=== PATIENT | female | born 1975 | race Caucasian/White ===

== ENCOUNTER 2018-05-03 10:00 | Emergency (ER) | payer OTHER ==
[~2018-05-03] VITALS: Ht 157.5 cm; Wt 90.7 kg
--- NOTE | 2018-05-03 11:08 | ED GI/GU/ABDOMINAL COMPLAINT ---
History of Present Illness General Chief Complaint: Abdominal Pain/Flank Pain Stated Complaint: SENT BY URGENT CARE FOR EVAL OF ABD PAIN/NAUSEA Source: patient Exam Limitations: no limitations Vital Signs & Intake/Output Vital Signs & Intake/Output Vital Signs Date Time Temp Pulse Resp B/P B/P Pulse O2 O2 Flow FiO2 Mean Ox Delivery Rate 05/03 1346 98.0 80 20 130/78 98 Room Air 05/03 1018 97.4 84 18 138/88 99 Room Air Allergies Coded Allergies: diphenhydramine (From BENADRYL) (Intermediate, HIGH HEART RATE. 05/03/18) Reconcile Medications Hydroxyzine HCl (hydrOXYzine HCl) 50 MG TABLET 1 TAB PO QPM SLEEP (Reported) Ketorolac Tromethamine 10 MG TABLET 1 TAB PO TID PRN PAIN Metoclopramide HCl (Reglan) 10 MG TABLET 1 TAB PO 4 TIMES/DAY PRN NAUSEA Ondansetron HCl (Zofran) 4 MG TABLET 1 TAB PO Q6-8P PRN NAUSEA Triage Note: C/O LLQ ABDOMINAL PAIN AND R LOWER BACK PAIN SINCE YESTERDAY. ALSO C/O NAUSEA AND DIZZINESS. LMP: 71 DENIES VOMIITING. Triage Nurses Notes Reviewed? yes ? N Is pt currently ? No Onset: Gradual Duration: waxing and waning Timing: recent history Quality/Severity: cramping, sharpness Severity Numbers: 7 Radiation: no radiation HPI: Patient is a 42-year-old female who presents emergency room with concerns of having menstrual cramping sensation that began 3 days ago where she's had intermittent nausea since. Patient is passing gas last bowel movement was 2 days ago. Patient is complaining of generalized abdominal pain patient is able tolerate by mouth with no change in symptoms patient was evaluated at urgent care facility and WAS ADVISED to emergency room. Denies any significant use of NSAIDs or alcohol. Denies any fever chills back pain chest pain shortness of breath cough vomiting (Clifton Shaikh) Past History Travel History Traveled to [place] past 21 day No Medical History Any Pertinent Medical History? none Neurological: NONE EENT: NONE Cardiovascular: NONE Gastrointestinal: NONE Hepatic: NONE Renal: NONE Musculoskeletal: NONE Psychiatric: NONE Endocrine: NONE Surgical History Surgical History: non-contributory Psychosocial History What is your primary language Malay Tobacco Use: Never used ETOH Use: occasional use Family History Hx Contributory? No (Clifton Shaikh) Review of Systems Review of Systems Constitutional: Reports: see HPI. EENTM: Reports: no symptoms. Respiratory: Reports: no symptoms. Cardiovascular: Reports: no symptoms. GI: Reports: see HPI. Genitourinary: Reports: no symptoms. Musculoskeletal: Reports: no symptoms. Skin: Reports: no symptoms. Neurological/Psychological: Reports: no symptoms. Hematologic/Endocrine: Reports: no symptoms. Immunologic/Allergic: Reports: no symptoms. All Other Systems: Reviewed and Negative (Clifton Shaikh) Physical Exam Physical Exam General Appearance: no apparent distress, alert, mild distress Head: atraumatic Eyes: Bilateral: normal appearance. Ears, Nose, Throat, Mouth: hearing grossly normal, moist mucous membrane Neck: normal inspection Respiratory: no respiratory distress Gastrointestinal: normal bowel sounds, soft, tenderness Extremities: normal range of motion Neurologic/Psych: no motor/sensory deficits Skin: intact, normal color Core Measures ACS in differential dx? No Sepsis Present: No Sepsis Focused Exam Completed? No (Clifton Shaikh) Progress Differential Diagnosis: AAA, AMI, appendicitis, biliary colic, bowel obstruction , colon cancer, cholecystitis, diverticulitis, ectopic , endometritis, esophageal varices, gastritis, hepatitis, hernia, hemorrhoids, ischemic bowel, inflamm bowel dis, intrauterine , kidney stone, Karen-Mathieu tear, ovarian cyst, ovarian torsion, pancreatitis, PID/cervicitis, peptic ulcer, PUD/ GERD, perforated viscous, SBO, threatened AB, UTI/pyelo Plan of Care: Orders Procedure Date/time Status URINALYSIS 05/03 111 Complete LACTIC ACID 05/03 111 Complete HUMAN BETA HCG SCREEN 05/03 111 Complete COMPREHENSIVE METABOLIC PANEL 05/03 1118 Complete CBC WITHOUT DIFFERENTIAL 05/03 1118 Complete Laboratory Tests 05/03/18 1305: Urinalysis LIGHT H, Urine Color STRAW, Urine Clarity CLEAR, Urine pH 6.0, Ur Specific [place] <= 1.005, Urine Protein NEG, Urine Ketones NEG, Urine Nitrite NEG, Urine Bilirubin NEG, Urine Urobilinogen 0.2, Ur Leukocyte Esterase NEG, Ur Microscopic SEDIMENT EXAMINED, Urine RBC 1-3, Ur Epithelial Cells RARE, Urine Mucus RARE, Urine Hemoglobin TRACE-INTACT, Urine Glucose NEG 05/03/18 1131: Anion Gap 10, Estimated GFR > 60, BUN/Creatinine Ratio 14.3, Glucose 92, Lactic Acid 0.8, Calcium 9.0, Total Bilirubin 0.5, AST 21, ALT 28, Alkaline Phosphatase 93, Total Protein 6.8, Albumin 3.8, Globulin 3.0, Albumin/Globulin Ratio 1.3, Total Beta HCG NEGATIVE, CBC w Diff NO MAN DIFF REQ, RBC 4.75, MCV 84.2, MCH 29.0, MCHC 34.5, RDW 12.7, MPV 8.4, Gran % 68.5, Lymphocytes % 20.8, Monocytes % 4.3, Eosinophils % 5.6 H, Basophils % 0.8, Absolute Granulocytes 5.2, Absolute Lymphocytes 1.6, Absolute Monocytes 0.3, Absolute Eosinophils 0.4, Absolute Basophils 0.1 Patient on initial presentation was in no apparent distress resting comfortably bedside Blood work CT scan was unremarkable patient was able tolerate by mouth upon discharge discussed all results with patient and no clear etiology of patient's symptoms however it could be menstrual symptoms versus GI Upon discharge patient looks well no apparent distress and will comply with discharge INSTRUCTIONS and had no questions Diagnostic Imaging: Viewed by Me: CT Scan. Radiology Impression: no acute abnormality Initial ED EKG: none Comments: PATIENT: VICKI AHMADI PRESENT AGE: 42 PATIENT ACCOUNT NO: [id number] : 77 LOCATION: [facility] ORDERING PHYSICIAN: Clifton ALEX SERVICE DATE: 05/03/18 EXAM TYPE: CAT - CT ABD & PELVIS W IV CONTRAST EXAMINATION: CT ABDOMEN AND PELVIS WITH CONTRAST CLINICAL INFORMATION: Nausea and abdominal pain. COMPARISON: None TECHNIQUE: Multidetector volumetric imaging was performed of the abdomen and pelvis following IV administration of 95 mL of Optiray 320 intravenous contrast. Sagittal and coronal reformatted images were obtained on the technologist's workstation. DLP: 654 mGy-cm FINDINGS: LUNG BASES: The lung bases are clear. The heart size is normal. LIVER, GALLBLADDER, AND BILIARY TREE: The liver is normal in size, shape, and diminished attenuation. No focal hepatic lesion or biliary ductal dilatation is present. There are punctate calcifications in the right hepatic lobe. The gallbladder is unremarkable with no evidence of radiopaque gallstones, gallbladder wall thickening, or obvious pericholecystic inflammatory changes. PANCREAS: Unremarkable. SPLEEN: A accessory splenule is seen along the anterior border of spleen. ADRENAL GLANDS: Unremarkable. KIDNEYS AND URETERS: The kidneys are normal in size, shape, and attenuation. No hydronephrosis, hydroureter, or calculi seen. No perinephric stranding. BLADDER: Unremarkable. GASTROINTESTINAL TRACT: There is moderate stool seen throughout the colon without any significant distention. The small bowel loops are normal caliber. The ileocecal junction appears normal. The appendix is normal caliber. No free air or inflammatory process. ABDOMINAL WALL: A small umbilical hernia containing fat is noted. LYMPH NODES: Normal. VASCULAR: Unremarkable. PELVIC VISCERA: The uterus is anteverted. No adnexal mass or inflammatory process seen. There is likely tampon in the cervical canal. OSSEOUS STRUCTURES: No lytic or sclerotic process seen. IMPRESSION: No acute intra-abdominal process seen. Nonspecific punctate calcification right hepatic lobe. DICTATED BY: Brandon Haynes MD DATE/TIME DICTATED:05/03/181305 LOAN INSPECTOR:TEDDY DATE/TIME TRANSCRIBED:05/03/181305 (Clifton Shaikh) Departure Departure Disposition: HOME OR SELF CARE Condition: Stable Clinical Impression Primary Impression: Abdominal pain Secondary Impressions: Nausea Referrals: Virginia Narvaez (PCP/Family) Additional Instructions: As discussed continue hydrating with clear liquids and bland diet, begin the prescription of Toradol for pain and Zofran for nausea and Reglan for breakthrough nausea relief, if no better in 2 days follow-up with your CLINICAL LABORATORY TECHNOLOGIST and follow-up with drop hammer operator helper Dr. Ji for further evaluation treatment , prescriptions are waiting at [facility]. If symptoms worsen or she develop new concerning symptoms return to emergency room. Departure Forms: Customer Survey General Discharge Information Prescriptions: Current Visit Scripts Ketorolac Tromethamine 1 TAB PO TID PRN PAIN #15 TAB Ondansetron HCl (Zofran) 1 TAB PO Q6-8P PRN NAUSEA #10 TAB Metoclopramide HCl (Reglan) 1 TAB PO 4 TIMES/DAY PRN NAUSEA #12 TAB (Clifton Shaikh) PA/YARDAGE CONTROL OPERATOR FORMING Co-Sign Statement Statement: ED Attending supervision documentation- I saw and evaluated the patient. I have also reviewed all the pertinent lab results and diagnostic results. I agree with the findings and the plan of care as documented in the PA's/YARDAGE CONTROL OPERATOR FORMING's documentation. x I have reviewed the ED Record and agree with the PA's/YARDAGE CONTROL OPERATOR FORMING's documentation. [] Additions or exceptions (if any) to the PAs/YARDAGE CONTROL OPERATOR FORMING's note and plan are summarized below: [] (Ivanna MCKINNEY,Arian)
[2018-05-03] MEDS ORDERED: HYDROXYZINE HCL50 M2 PO (11:09)
[2018-05-03 11:41] LABS: ABSOLUTE BASOPHIL COUNT 0.1 /CUMM (0.0-0.2); ABSOLUTE EOSINOPHIL COUNT 0.4 /CUMM (0.0-0.7); ABSOLUTE GRANULOCYTE CT 5.2 /CUMM (1.4-6.5); ABSOLUTE LYMPH COUNT 1.6 /CUMM (1.2-3.4); ABSOLUTE MONOCYTE COUNT 0.3 /CUMM (0.10-0.60); BASOPHIL % 0.8 % (0.0-2.0); EOSINOPHIL % 5.6 % (0-5); GRANULOCYTE % 68.5 % (42.2-75.2); MEAN CORPUSCULAR HGB CONC 34.5 G/DL (33.0-37.0); MEAN CORPUSCULAR VOLUME 84.2 FL (81.0-99.0); MEAN PLATELET VOLUME 8.4 FL (7.4-10.4); PLATELET COUNT 272 /CUMM (130-400); RBC DISTRIBUTION WIDTH 12.7 % (11.5-14.5); RED BLOOD CELL CT 4.75 /CUMM (4.20-5.40); WHITE BLOOD CELL COUNT 7.5 /CUMM (4.8-10.8)
--- NOTE | 2018-05-03 13:16 | CT SCAN REPORT ---
EXAMINATION: CT ABDOMEN AND PELVIS WITH CONTRAST CLINICAL INFORMATION: Nausea and abdominal pain. COMPARISON: None TECHNIQUE: Multidetector volumetric imaging was performed of the abdomen and pelvis following IV administration of 95 mL of Optiray 320 intravenous contrast. Sagittal and coronal reformatted images were obtained on the technologist's workstation. DLP: 654 mGy-cm FINDINGS: LUNG BASES: The lung bases are clear. The heart size is normal. LIVER, GALLBLADDER, AND BILIARY TREE: The liver is normal in size, shape, and diminished attenuation. No focal hepatic lesion or biliary ductal dilatation is present. There are punctate calcifications in the right hepatic lobe. The gallbladder is unremarkable with no evidence of radiopaque gallstones, gallbladder wall thickening, or obvious pericholecystic inflammatory changes. PANCREAS: Unremarkable. SPLEEN: A accessory splenule is seen along the anterior border of spleen. ADRENAL GLANDS: Unremarkable. KIDNEYS AND URETERS: The kidneys are normal in size, shape, and attenuation. No hydronephrosis, hydroureter, or calculi seen. No perinephric stranding. BLADDER: Unremarkable. GASTROINTESTINAL TRACT: There is moderate stool seen throughout the colon without any significant distention. The small bowel loops are normal caliber. The ileocecal junction appears normal. The appendix is normal caliber. No free air or inflammatory process. ABDOMINAL WALL: A small umbilical hernia containing fat is noted. LYMPH NODES: Normal. VASCULAR: Unremarkable. PELVIC VISCERA: The uterus is anteverted. No adnexal mass or inflammatory process seen. There is likely tampon in the cervical canal. OSSEOUS STRUCTURES: No lytic or sclerotic process seen. IMPRESSION: No acute intra-abdominal process seen. Nonspecific punctate calcification right hepatic lobe.
[2018-05-03] MEDS ORDERED: ZOFRAN4 M2 PO (13:40)
[2018-05-03] MEDS ORDERED: REGLAN10 M1 PO (13:40)
[2018-05-03] MEDS ORDERED: KETOROLAC TROME10 M1 PO (13:40)
[2018-05-03 13:46] VITALS: BP 130/78
== END 2018-05-03 13:45 ==
LOC: ERH 10:00
PROVIDERS: Physician Assistant
DX: R10.9 Unspecified abdominal pain (principal); R11.0 Nausea
CPT/HCPCS: 74177; 81001; 96374; 96375; J1885; J2405; J2765; J7040